=== PATIENT | male | born 1990 | race African-American/Black ===

== ENCOUNTER 2016-07-20 23:09 | Emergency (ER) | payer SELFPAY | END 2016-07-20 23:30 | disposition left against medical advice (07) | LOC: ER 23:09 | DX: Z53.9 Procedure and treatment not carried out, unspecified reason (principal); R21 Rash and other nonspecific skin eruption ==

== ENCOUNTER 2016-07-25 05:21 | Emergency (ER) | payer SELFPAY ==
[2016-07-25 05:43] VITALS: BP 139/76
--- NOTE | 2016-07-25 06:35 | ER Document Report ---
ED General - General Chief Complaint: Itching Stated Complaint: POSSIBLE SCABIES Time Seen by Provider: 07/25/16 06:05 Mode of Arrival: Ambulatory Information source: Patient Notes: 25-year-old male presents with multiple complaints. Initial complaint is for itchiness of his upper back, patient is noted to have been around the patient who had scabies, patient has not actually had any actual physical contact with the patient. Patient also notes that he has bumps around his inner thighs but this has been chronic, patient also notes that he has dental pain which has been ongoing for at least 3 weeks TRAVEL OUTSIDE OF THE [place] IN LAST 30 DAYS: No - HPI Onset: Other Onset/Duration: Persistent Quality of pain: Achy Severity: Mild Pain Level: 1 Associated symptoms: Other Exacerbated by: Denies Relieved by: Denies Similar symptoms previously: No Recently seen / treated by doctor: No - Related Data Allergies/Adverse Reactions: No Known Allergies Allergy (Verified 06/01/14 20:22) Past Medical History - Social History Smoking Status: Never Smoker Cigarette use (# per day): No Chew tobacco use (# tins/day): No Smoking Education Provided: No Family History: Hypertension Neurological Medical History: Reports: Hx Migraine Renal/ Medical History: Denies: Hx Peritoneal Dialysis Psychiatric Medical History: Reports: Hx Bipolar Disorder, Hx Depression, Hx Schizophrenia Past Surgical History: Reports: Hx Oral Surgery - Immunizations Immunizations up to date: Yes Hx Diphtheria, Pertussis, Tetanus Vaccination: Yes Review of Systems - Review of Systems Notes: PHYSICAL EXAMINATION: GENERAL: Well-appearing, well-nourished and in no acute distress. HEAD: Atraumatic, normocephalic. EYES: Pupils equal round and reactive to light, extraocular movements intact, sclera anicteric, conjunctiva are normal. ENT: Very poor dentition particularly in tooth #12 decayed NECK: Normal range of motion, supple without lymphadenopathy LUNGS: Breath sounds clear to auscultation bilaterally and equal. No wheezes rales or rhonchi. HEART: Regular rate and rhythm without murmurs ABDOMEN: Soft, nontender, nondistended abdomen. No guarding, no rebound. No masses appreciated. Musculoskeletal: Normal range of motion, no pitting or edema. No cyanosis. NEUROLOGICAL: Cranial nerves grossly intact. Normal speech, normal gait. Normal sensory, motor exams PSYCH: Normal mood, normal affect. SKIN: Scarring noted of the bilateral inner thighs probably secondary to infected hair follicles, no abscess noted no signs of scabies no burrows Physical Exam - Vital signs Vitals: Temp Pulse Resp BP Pulse Ox 98.2 F 86 16 139/76 H 100 07/25/16 05:39 07/25/16 05:39 07/25/16 05:39 07/25/16 05:39 07/25/16 05:39 Course - Re-evaluation Re-evalutation: 07/25/16 08:33 Patient will be started on antibiotics for dental pain, I do not see any signs of scabies or any other skin infectious process. Patient denies a history of MRSA. I will discharge home with follow-up with primary care physician and dentistry After performing a Medical Screening Examination, I estimate there is LOW risk for any life threatening rash. At this time the patient looks extremely well and there are no signs of systemic infection, however this may change at any time and the rash may change. I have reevaluated this patient multiple times and no significant life threatening changes are noted. The patient and I have discussed the diagnosis and risks, and we agree with discharging home with close follow-up with the understanding that symptoms and presentations can change. We also discussed returning to the Emergency Department immediately if new or worsening symptoms occur. We have discussed the symptoms which are most concerning (e.g., changing or worsening pain, fever, numbness, weakness, cool or painful digits) that necessitate immediate return. - Vital Signs Vital signs: Temp Pulse Resp BP Pulse Ox 98.2 F 86 21 H 139/76 H 100 07/25/16 05:39 07/25/16 05:39 07/25/16 05:40 07/25/16 05:39 07/25/16 05:39 Discharge - Discharge Clinical Impression: Pain, dental, Itching Condition: Stable Disposition: HOME, SELF-CARE Instructions: Toothache ([facility]) Additional Instructions: Follow up with your physician tomorrow for further care or return to the ED IMMEDIATELY if symptoms worsen or new concerns occur. If you cannot afford to follow up with your primary care physician a list of low cost clinics have been provided at the end of your discharge papers as well. Prescriptions: Penicillin V Potassium [Penicillin Vk 500 mg Tablet] 500 mg PO Q6 #40 tablet Forms: Return to Work
== END 2016-07-25 06:40 | disposition home or self-care (01) ==
LOC: ER 05:21
DX: K08.89 Other specified disorders of teeth and supporting structures (principal); L29.9 Pruritus, unspecified
CPT/HCPCS: 99282

== ENCOUNTER 2016-08-15 23:56 | Emergency (ER) | payer SELFPAY ==
[2016-08-16 00:02] VITALS: BP 155/79
[2016-08-16] MEDS ORDERED: CEFTRIAXONE INJ 250 MG VIAL IM ONE (01:30)
[2016-08-16] MEDS ORDERED: AZITHROMYCIN 250 MG TABLET PO ONE (01:30)
[2016-08-16] MEDS ORDERED: LIDOCAINE 1% INJ-PF (10 MG/ML) 30 ML SDV INJ ONE (01:30)
--- NOTE | 2016-08-16 01:32 | ER Document Report ---
ED GI/ - General Chief Complaint: STD Exposure Stated Complaint: POSSIBLE STD EXPOSURE Time Seen by Provider: 08/16/16 01:20 Notes: Patient is a 25-year-old male that comes emergency department for chief complaint of STD exposure. He states that his was evaluated earlier today and diagnosed with both gonorrhea and chlamydia. Patient denies any symptoms including rash, abdominal pain, dysuria, penile discharge, or any other symptoms. Patient states he is simply here because of the exposure information. He denies any daily medications. He denies homicidal ideations. TRAVEL OUTSIDE OF THE [place] IN LAST 30 DAYS: No - Related Data Allergies/Adverse Reactions: No Known Allergies Allergy (Verified 06/01/14 20:22) Past Medical History - General Information source: Patient - Social History Smoking Status: Current Every Day Smoker Chew tobacco use (# tins/day): No Frequency of alcohol use: Social Drug Abuse: None Lives with: Family Family History: Hypertension Patient has suicidal ideation: No Patient has homicidal ideation: No Neurological Medical History: Reports: Hx Migraine Renal/ Medical History: Denies: Hx Peritoneal Dialysis Psychiatric Medical History: Reports: Hx Bipolar Disorder, Hx Depression Past Surgical History: Reports: Hx Oral Surgery - Immunizations Immunizations up to date: Yes Hx Diphtheria, Pertussis, Tetanus Vaccination: Yes Review of Systems - Review of Systems Constitutional: No symptoms reported EENT: No symptoms reported Cardiovascular: No symptoms reported Respiratory: No symptoms reported Gastrointestinal: No symptoms reported Genitourinary: No symptoms reported Male Genitourinary: No symptoms reported Musculoskeletal: No symptoms reported Skin: No symptoms reported Hematologic/Lymphatic: No symptoms reported Neurological/Psychological: No symptoms reported Physical Exam - Vital signs Vitals: Temp Pulse Resp BP Pulse Ox 98.5 F 73 16 155/79 H 100 08/16/16 00:01 08/16/16 00:01 08/16/16 00:01 08/16/16 00:01 08/16/16 00:01 Interpretation: Normal - General General appearance: Appears well, Alert In distress: None - HEENT Head: Normocephalic, Atraumatic Eyes: Normal Pupils: PERRL - Respiratory Respiratory status: No respiratory distress Chest status: Nontender Breath sounds: Normal Chest palpation: Normal - Cardiovascular Rhythm: Regular Heart sounds: Normal auscultation Murmur: No - Abdominal Inspection: Normal Distension: No distension Bowel sounds: Normal Tenderness: Nontender. No: Tender, Guarding Organomegaly: No organomegaly - Back Back: Normal, Nontender - Extremities General upper extremity: Normal inspection, Nontender, Normal color, Normal ROM , Normal temperature General lower extremity: Normal inspection, Nontender, Normal color, Normal ROM , Normal temperature, Normal weight bearing. No: Julia's sign - Neurological Neuro grossly intact: Yes Cognition: Normal Orientation: AAOx4 Ema Coma Scale Eye Opening: Spontaneous Ema Coma Scale Verbal: Oriented [place] Coma Scale Motor: Obeys Commands [place] Coma Scale Total: 15 Speech: Normal Motor strength normal: LUE, RUE, LLE, RLE Sensory: Normal - Psychological Associated symptoms: Normal affect, Normal mood. No: Aggressive, Agitated, Angry, Anxious - Skin Skin Temperature: Warm Skin Moisture: Dry Skin Color: Normal Course - Re-evaluation Re-evalutation: Nurse informed me that patient complaining of a mild headache after antibiotics. Requests medication for this, still says he is ready to leave. - Vital Signs Vital signs: Temp Pulse Resp BP Pulse Ox 98.5 F 73 16 155/79 H 100 08/16/16 00:01 08/16/16 00:01 08/16/16 00:01 08/16/16 00:01 08/16/16 00:01 Discharge - Discharge Clinical Impression: STD exposure Condition: Stable Disposition: HOME, SELF-CARE Additional Instructions: You have been treated for the exposure. Avoid sexual activity for a week. Follow up with Primary Care. Return to the ED for any concerning symptoms. Forms: Return to Work, Elevated Blood Pressure
[2016-08-16] MEDS ORDERED: IBUPROFEN 600 MG TABLET PO ONE (02:11)
== END 2016-08-16 02:25 | disposition home or self-care (01) ==
LOC: ER 23:56
DX: Z20.2 Contact with and (suspected) exposure to infections with a predominantly sexual mode of transmission (principal); F17.200 Nicotine dependence, unspecified, uncomplicated
CPT/HCPCS: 99283; 96372; J3490; J0696

== ENCOUNTER 2017-04-27 20:56 | Emergency (ER) | payer SELFPAY ==
[2017-04-28] MEDS ORDERED: VANCOMYCIN HCL INJ 1000 MG VIAL IV ONE (00:16)
[2017-04-28] MEDS ORDERED: CEFTRIAXONE INJ 1000 MG VIAL IV ONE (00:16)
[2017-04-28] MEDS ORDERED: HYDROMORPHONE HCL INJ/PF 2 MG/ML AMPULE IV ONE (00:18)
--- NOTE | 2017-04-28 00:52 | ER Document Report ---
ED General - General Chief Complaint: Insect Bite Stated Complaint: INSECT BITE Time Seen by Provider: 04/27/17 23:49 Notes: Patient is a 26-year-old male who presents with complaint of swelling to the right elbow. He says it has been there for over 3 days. He suspected it may be a spider bite. He did not actually see an insect or bite there. He says he saw lump there and says he buys all 2 small holes. He denies any vomiting. No diarrhea. He says he did start having fevers tonight and the swelling has increased and therefore is come to the ER. Denies any history of surgeries on elbow. No other complaints at this time. TRAVEL OUTSIDE OF THE [place] IN LAST 30 DAYS: No - Related Data Allergies/Adverse Reactions: No Known Allergies Allergy (Verified 06/01/14 20:22) Past Medical History - Social History Smoking Status: Never Smoker Frequency of alcohol use: None Drug Abuse: None Family History: Hypertension Neurological Medical History: Reports: Hx Migraine Renal/ Medical History: Denies: Hx Peritoneal Dialysis Psychiatric Medical History: Reports: Hx Bipolar Disorder, Hx Depression, Hx Schizophrenia Past Surgical History: Reports: Hx Oral Surgery - Immunizations Immunizations up to date: Yes Hx Diphtheria, Pertussis, Tetanus Vaccination: Yes Review of Systems - Review of Systems Notes: My Normal Review Basic REVIEW OF SYSTEMS: CONSTITUTIONAL : fever RESPIRATORY: Denies cough, cold, or chest congestion. Denies shortness of breath, difficulty breathing, or wheezing. GASTROINTESTINAL: Denies abdominal pain. Denies nausea, vomiting, or diarrhea. MUSCULOSKELETAL: Right elbow pain and swelling. SKIN: Denies rash or skin lesions. NEUROLOGICAL: Denies altered mental status or loss of consciousness. Denies headache. Denies weakness or paralysis or loss of use of either side. Denies problems with gait or speech. Denies sensory or motor loss. ALL OTHER SYSTEMS REVIEWED AND NEGATIVE. Physical Exam - Vital signs Vitals: Temp Pulse BP Pulse Ox 100.1 F 92 138/84 H 99 04/27/17 21:11 04/27/17 21:11 04/27/17 21:11 04/27/17 21:11 - Notes Notes: General Appearance: Well nourished, alert, cooperative, no acute distress, mild to moderate obvious discomfort. Vitals: reviewed, See vital signs table. Eyes: PERRL, EOMI, Conjuctiva clear Mouth: No decreasd moisture Lungs: No wheezing, No rales, No rhonci, No accessory muscle use, good air exchange bilaterally. Heart: Normal rate, Regular rythm, No murmur, no rub Abdomen: Normal BS, soft, No rigidity, No abdominal tenderness, No guarding, no rebound, no abdominal masses, no organomegaly Extremities: strength 5/5 in all extremities, good pulses in all extremities, large amount of swelling over the posterior aspect of the elbow. Patient is able to fully flex the elbow. He is able to almost completely extend the elbow. There is warmth and redness to the posterior aspect of the elbow. Skin: warm, dry, appropriate color, no rash Neuro: speech clear, oriented x 3, normal affect, responds appropriately to questions. Course - Re-evaluation Re-evalutation: 04/28/17 05:13 Due to the extension of cellulitis in the location of swelling over the elbow itself I did speak with Dr. Phan who agreed to admit the patient for IV antibiotics and continued management. Patient now says he does not want to stay. Patient says that his Family in town and just would rather go home. I talked at length with the patient. He continued to call family and go back and forth as to whether he would stay or not stay. Eventually patient refused to stay. I informed him that he should really stay as the swelling may continue to worsen and his infection may spread and this could cause him to get infection into his joint which could lead to surgery and ultimately could lead to loss of limb. Patient shows understanding of this but still refuses to stay. Also remarked the area of swelling and showed him that is actually increased since he has been here in the ER. Patient again will not stay. Patient says he will come back for second morning for reevaluation. He says he cannot stay as he has things to take care of him at home and his family in town. Patient is awake alert and oriented. He is not currently septic. He is not altered in any way. He has the capability of make his own decisions. He is understanding of the warnings have given him and has decided to sign out AGAINST MEDICAL ADVICE. Informed him that despite him sign AGAINST MEDICAL ADVICE is still want what is best form and I strongly encourage him to return to ER at his earliest can convenience so that we can reevaluate him and take care of him and make sure that his infection improves and does not progress. Patient agrees with this and he will be discharged as he requests. Dictation of this chart was performed using voice recognition software; therefore, there may be some unintended grammatical errors. 04/28/17 05:15 - Vital Signs Vital signs: Temp Pulse Resp BP Pulse Ox 99.5 F 81 18 130/75 H 98 04/28/17 04:12 04/28/17 04:12 04/28/17 04:12 04/28/17 04:12 04/28/17 04:12 - Laboratory Result Diagrams: 04/28/17 01:00 04/28/17 01:00 Laboratory results interpreted by me: 04/28/17 01:00 WBC 15.8 H Absolute Neutrophils 10.3 H Absolute Monocytes 1.5 H Discharge - Discharge Clinical Impression: Cellulitis Qualifiers: Site of cellulitis: extremity Site of cellulitis of extremity: upper extremity Laterality: right Qualified Code(s): L03.113 - Cellulitis of right upper limb Condition: Stable Disposition: AGAINST MEDICAL ADVICE Instructions: Oral Narcotic Medication ([facility]) Additional Instructions: Please return to the ER as soon as possible for reevaluation. please follow up with Dr. Phan on Saturday for reevaluation as well. As discussed with you we want you to stay in the hospital because my concern is that your infection could get worse and lead to spreading infection to the elbow joint itself which leads to surgery and potentially loss of arm and life. We respect your right to choose to leave, but we want what is best for you and therefore welcome you to return to the ER at your earliest ability for reevaluation and further treatment. Prescriptions: Cephalexin Monohydrate [Keflex 500 mg Capsule] 500 mg PO Q6H #28 capsule Sulfamethoxazole/Trimethoprim [Bactrim Ds Tablet] 1 each PO BID #14 tablet Referrals: KARY ABEL MD [ACTIVE STAFF] - 04/29/17
[2017-04-28 01:14] LABS: ABSOLUTE BASOPHILS # (AUTO) 0.1 10^3/uL (0.0-0.2); ABSOLUTE EOSINOPHILS # (AUTO) 0.3 10^3/uL (0.0-0.6); ABSOLUTE LYMPHOCYTES (AUTO) 3.5 10^3/uL (0.5-4.7); ABSOLUTE MONOCYTES (AUTO) 1.5 10^3/uL (0.1-1.4); ABSOLUTE NEUT (AUTO) 10.3 10^3/uL (1.7-8.2); BASOPHILS % (AUTO) 0.5 % (0-2); EOSINOPHILS % (AUTO) 2.1 % (0-6); HEMATOCRIT 47.6 % (37.9-51.0); HEMOGLOBIN 16.4 g/dL (13.5-17.0); LYMPHOCYTES % (AUTO) 22.2 % (13-45); MEAN CORPUSCULAR HEMOGLOBIN 32.4 pg (27.0-33.4); MEAN CORPUSCULAR HGB CONC 34.5 g/dL (32.0-36.0); MEAN CORPUSCULAR VOLUME 94 fl (80-97); MONOCYTES % (AUTO) 9.6 % (3-13); PLATELET COUNT 378 10^3/uL (150-450); RED BLOOD COUNT 5.07 10^6/uL (4.35-5.55); RED CELL DISTRIBUTION WIDTH 13.8 % (11.5-14.0); SEGMENTED NEUTROPHILS % (AUTO) 65.6 % (42-78); TOTAL CELLS COUNTED % (AUTO) 100 %; WHITE BLOOD COUNT 15.8 10^3/uL (4.0-10.5)
[2017-04-28 01:36] LABS: ANION GAP 17 (5-19); BLOOD UREA NITROGEN 9 mg/dL (7-20); CALCIUM 9.7 mg/dL (8.4-10.2); CARBON DIOXIDE 22 mmol/L (22-30); CHLORIDE 103 mmol/L (98-107); GLUCOSE 83 mg/dL (75-110); POTASSIUM 4.3 mmol/L (3.6-5.0); SODIUM 142.4 mmol/L (137-145)
--- NOTE | 2017-04-28 02:04 | RADIOLOGY REPORT (SQ) ---
EXAM DESCRIPTION: 1. CT of the right elbow with contrast. CLINICAL HISTORY: right elbow swelling, bursitis vs. abscess COMPARISON: None Available. TECHNIQUE: Axial CT images of the right elbow obtained following the uncomplicated intravenous administration of 50 mL [id number]. FINDINGS: Elbow: No acute fracture identified. In the dorsal soft tissues of the elbow there is diffuse subcutaneous edema without well-circumscribed circumscribed rim-enhancing fluid collection. Given extension into the subcutaneous soft tissues of the proximal forearm bursitis is considered less likely. No destructive osseous lesions. No abnormalities of the visualized vascular structures. No vascular abnormalities identified. DLP: 70 mGy-cm IMPRESSION: 1. Findings most suggestive of cellulitis involving the dorsal soft tissues of the elbow. No well-circumscribed fluid collection to suggest abscess formation. 2. Diffuse nature of inflammatory change extends beyond the expected location of the olecranon bursa. This exam was performed according to our departmental dose-optimization program, which includes automated exposure control, adjustment of the mA and/or kV according to patient size and/or use of iterative reconstruction technique.
[2017-04-28] MEDS ORDERED: RINGERS SOLUTION,LACTATED 1,000 ML IV PRN (02:30)
[2017-04-28] MEDS ORDERED: OXYCODONE-ACETAMINOPHEN 5-325 MG TABLET PO PRN (02:30)
[2017-04-28] MEDS ORDERED: ONDANSETRON HCL INJ/PF 4 MG/2 ML SDV IV PRN (02:30)
[2017-04-28] MEDS ORDERED: PHARMACY COMMUNICATION ORDER MC PRN (02:35)
[2017-04-28] MEDS ORDERED: HYDROCODONE/ACETAMINOPHEN 5-325 MG (6 TAB/ER DISP) PO PRN (03:18)
[2017-04-28 04:13] VITALS: BP 130/75
[2017-04-28] MEDS ORDERED: VANCOMYCIN HCL 1,500 MG in DEXTROSE 5%-WATER 250 ML IV SCH (14:00)
== END 2017-04-28 04:13 | disposition left against medical advice (07) ==
LOC: ER 20:56
DX: L03.113 Cellulitis of right upper limb (principal); R50.9 Fever, unspecified; M25.521 Pain in right elbow; Z53.29 Procedure and treatment not carried out because of patient's decision for other reasons
CPT/HCPCS: 99284; 96375; 96365; 96366; 96367; 36415; 87040; 85025; 80048; 73201; J1170; J0696; J3370

== ENCOUNTER 2018-05-02 09:49 | Emergency (ER) | payer SELFPAY ==
--- NOTE | 2018-05-02 10:05 | ER Document Report ---
ED Medical Screen (RME) - General Chief Complaint: Abdominal Pain Stated Complaint: ABDOMINAL PAIN Time Seen by Provider: 05/02/18 09:58 Notes: Patient says that he has had diarrhea almost constantly since Saturday night. Says he is going to the bathroom about every 15-30 minutes. There was some blood in the diarrhea at first, but not lately. Has generalized, all over, abdominal pain. Nauseated but not vomiting. No fevers. No history of any gastrointestinal diseases. No surgeries. On no regular prescription medications for any medical condition. Abdomen is soft throughout. No guarding. TRAVEL OUTSIDE OF THE [place] IN LAST 30 DAYS: No - Related Data Allergies/Adverse Reactions: No Known Allergies Allergy (Verified 05/02/18 09:50) Past Medical History - Social History Chew tobacco use (# tins/day): No Frequency of alcohol use: Occasional Drug Abuse: None Neurological Medical History: Reports: Hx Migraine Renal/ Medical History: Denies: Hx Peritoneal Dialysis Psychiatric Medical History: Reports: Hx Bipolar Disorder, Hx Depression, Hx Schizophrenia Past Surgical History: Reports: Hx Oral Surgery - Immunizations Immunizations up to date: Yes Hx Diphtheria, Pertussis, Tetanus Vaccination: Yes Physical Exam - Vital signs Vitals: Temp Pulse Resp BP Pulse Ox 98.3 F 88 18 146/74 H 99 05/02/18 09:52 05/02/18 09:52 05/02/18 09:52 05/02/18 09:52 05/02/18 09:52 Course - Vital Signs Vital signs: Temp Pulse Resp BP Pulse Ox 98.3 F 88 18 146/74 H 99 05/02/18 09:52 05/02/18 09:52 05/02/18 09:52 05/02/18 09:52 05/02/18 09:52
[2018-05-02 10:46] LABS: APPEARANCE,URINE SLIGHTLY-CLOUDY; BILIRUBIN,URINE NEGATIVE (NEGATIVE); COLOR,URINE YELLOW; GLUCOSE, URINE NEGATIVE (NEGATIVE); KETONES,URINE NEGATIVE (NEGATIVE); LEUKOCYTE ESTERASE,URINE NEGATIVE (NEGATIVE); NITRITE,URINE NEGATIVE (NEGATIVE); PROTEIN,URINE NEGATIVE (NEGATIVE); URINE SPECIFIC GRAVITY 1.025; UROBILINOGEN,URINE NEGATIVE mg/dL (<2.0)
[2018-05-02 11:09] LABS: ABSOLUTE BASOPHILS # (AUTO) 0.1 10^3/uL (0.0-0.2); ABSOLUTE EOSINOPHILS # (AUTO) 0.2 10^3/uL (0.0-0.6); ABSOLUTE LYMPHOCYTES (AUTO) 2.5 10^3/uL (0.5-4.7); ABSOLUTE MONOCYTES (AUTO) 0.9 10^3/uL (0.1-1.4); ABSOLUTE NEUT (AUTO) 6.7 10^3/uL (1.7-8.2); BASOPHILS % (AUTO) 0.6 % (0-2); EOSINOPHILS % (AUTO) 1.7 % (0-6); HEMATOCRIT 47.5 % (37.9-51.0); HEMOGLOBIN 16.7 g/dL (13.5-17.0); LYMPHOCYTES % (AUTO) 24.4 % (13-45); MEAN CORPUSCULAR HEMOGLOBIN 33.4 pg (27.0-33.4); MEAN CORPUSCULAR HGB CONC 35.2 g/dL (32.0-36.0); MEAN CORPUSCULAR VOLUME 95 fl (80-97); MONOCYTES % (AUTO) 8.4 % (3-13); PLATELET COUNT 327 10^3/uL (150-450); RED CELL DISTRIBUTION WIDTH 13.7 % (11.5-14.0); SEGMENTED NEUTROPHILS % (AUTO) 64.9 % (42-78); TOTAL CELLS COUNTED % (AUTO) 100 %; WHITE BLOOD COUNT 10.3 10^3/uL (4.0-10.5)
[2018-05-02 11:32] LABS: ALANINE AMINOTRANSFERASE 19 U/L (21-72); ALBUMIN 4.6 g/dL (3.5-5.0); ALKALINE PHOSPHATASE 80 U/L (38-126); ANION GAP 14 (5-19); ASPARTATE AMINO TRANSFERASE 27 U/L (17-59); BILIRUBIN,DIRECT 0.3 mg/dL (0.0-0.4); BILIRUBIN,TOTAL 0.7 mg/dL (0.2-1.3); BLOOD UREA NITROGEN 10 mg/dL (7-20); CALCIUM 10.1 mg/dL (8.4-10.2); CARBON DIOXIDE 22 mmol/L (22-30); CHLORIDE 107 mmol/L (98-107); GLUCOSE 145 mg/dL (75-110); LIPASE 94.7 U/L (23-300); POTASSIUM 4.1 mmol/L (3.6-5.0); TOTAL PROTEIN 7.7 g/dL (6.3-8.2)
[2018-05-02] MEDS ORDERED: AZITHROMYCIN 250 MG TABLET PO ONE (11:58)
[2018-05-02] MEDS ORDERED: LIDOCAINE 1% INJ-PF (10 MG/ML) 30 ML SDV INFIL ONE (11:58)
[2018-05-02] MEDS ORDERED: CEFTRIAXONE INJ 250 MG VIAL IM ONE (11:58)
[2018-05-02] MEDS ORDERED: KETOROLAC TROMETHAMINE INJ/PF 30 MG/1 ML SDV IV ONE (11:59)
[2018-05-02] MEDS ORDERED: NORMAL SALINE 1000 ML 1,000 ML IV ONE (11:59)
[2018-05-02] MEDS ORDERED: DICYCLOMINE HCL 20 MG TABLET PO ONE (12:49)
--- NOTE | 2018-05-02 12:54 | ER Document Report ---
ED General - General Chief Complaint: Abdominal Pain Stated Complaint: ABDOMINAL PAIN Time Seen by Provider: 05/02/18 09:58 Notes: Patient is a 27-year-old male previously healthy that presents to the emergency department for chief complaint of abdominal pain and diarrhea. Patient states the pain started 3 days ago, and has been persistent and seemingly worsening over time. The pain is located left lower quadrant, and they currently rate the pain as a 5 out of 10, and described as aching, and constant. They have had associated nausea, but no vomiting, denies fevers, chills, night sweats, chest pain, shortness of breath or difficulty breathing. He states he recently visited someone in the hospital, and was concerned about that he might have contracted something from the hospital as well. Past Medical History: Denies chronic medical conditions Past Surgical History: Denies surgical history Social History: Mid to rare alcohol use, denies tobacco or drug use. Family History: Reviewed and noncontributory for presenting illness Allergies: Reviewed, see documented allergy list. REVIEW OF SYSTEMS: Other than noted above, the 12 point review of systems was reviewed with the patient and were negative, all pertinent findings are included in the HPI. PHYSICAL EXAMINATION: Vital signs reviewed, nursing noted reviewed. GENERAL: Well-appearing, well-nourished and appears uncomfortable HEAD: Atraumatic, normocephalic. EYES: Eyes appear normal, extraocular movements intact, sclera anicteric, conjunctiva are normal. ENT: nares patent, oropharynx clear without exudates. Moist mucous membranes. NECK: Normal range of motion, supple without lymphadenopathy LUNGS: Breath sounds clear to auscultation bilaterally and equal. No wheezes rales or rhonchi. HEART: Regular rate and rhythm without murmurs ABDOMEN: Soft, normal bowel sounds, tenderness with palpation mainly in the left lower quadrant, No rebound, guarding, or rigidity. No masses appreciated. EXTREMITIES: Nontender, good range of motion, no pitting or edema. NEUROLOGICAL: No focal neurological deficits. Moves all extremities spontaneously Motor and sensory grossly intact on exam. PSYCH: Normal mood, normal affect. SKIN: Warm, Dry, normal turgor, no rashes or lesions noted on exposed skin TRAVEL OUTSIDE OF THE [place] IN LAST 30 DAYS: No - Related Data Allergies/Adverse Reactions: No Known Allergies Allergy (Verified 05/02/18 09:50) Past Medical History - Social History Smoking Status: Current Every Day Smoker Chew tobacco use (# tins/day): No Frequency of alcohol use: Occasional Drug Abuse: None Family History: Hypertension Patient has suicidal ideation: No Patient has homicidal ideation: No Neurological Medical History: Reports: Hx Migraine Renal/ Medical History: Denies: Hx Peritoneal Dialysis Psychiatric Medical History: Reports: Hx Bipolar Disorder, Hx Depression, Hx Schizophrenia Past Surgical History: Reports: Hx Oral Surgery - Immunizations Immunizations up to date: Yes Hx Diphtheria, Pertussis, Tetanus Vaccination: Yes Physical Exam - Vital signs Vitals: Temp Pulse Resp BP Pulse Ox 98.3 F 88 18 146/74 H 99 05/02/18 09:52 05/02/18 09:52 05/02/18 09:52 05/02/18 09:52 05/02/18 09:52 Course - Re-evaluation Re-evalutation: Patient seen and examined vital signs reviewed. Laboratory data and imaging were ordered as appropriate for the patient's presenting symptoms and complaint, with consideration of any critical or life threatening conditions that may be associated with their obtained history and exam as noted above. Patient was treated with IV fluids, Zofran and Toradol. He was also given a dose of p.o. Bentyl 20 mg. Results were reviewed when available and demonstrated unremarkable blood work, and negative CT imaging of the abdomen and pelvis, his urinalysis was positive for hematuria, patient made aware of this and advised he needs to follow-up on this, he was also treated for STI's with Rocephin and azithromycin as he had a concern about this as well. C. difficile was ordered and was negative. The patient was re-evaluated and was stable and improved Evaluation was most consistent with abdominal pain, diarrhea, hematuria. Results were discussed with the patient at this point, after careful consideration I feel that that patient can be discharged from the emergency department, the patient was educated treatments and reasons to return to the emergency department based on their presumed diagnosis as noted above, they were advised to followup with a primary care physician in 2-3 days. Patient was agreeable to plan of care. *Note is created using voice recognition software and may contain spelling, syntax or grammatical errors. Laboratory 05/02/18 05/02/18 05/02/18 10:16 10:16 10:16 WBC 10.3 RBC 5.00 Hgb 16.7 Hct 47.5 MCV 95 MCH 33.4 MCHC 35.2 RDW 13.7 Plt Count 327 Seg Neutrophils % 64.9 Lymphocytes % 24.4 Monocytes % 8.4 Eosinophils % 1.7 Basophils % 0.6 Absolute Neutrophils 6.7 Absolute Lymphocytes 2.5 Absolute Monocytes 0.9 Absolute Eosinophils 0.2 Absolute Basophils 0.1 Sodium 143.0 Potassium 4.1 Chloride 107 Carbon Dioxide 22 Anion Gap 14 BUN 10 Creatinine 0.81 Est GFR ( Amer) > 60 Est GFR (Non-Af Amer) > 60 Glucose 145 H Calcium 10.1 Total Bilirubin 0.7 Direct Bilirubin 0.3 Neonat Total Bilirubin Not Reportable Neonat Direct Bilirubin Not Reportable Neonat Indirect Bili Not Reportable AST 27 ALT 19 L Alkaline Phosphatase 80 Total Protein 7.7 Albumin 4.6 Lipase 94.7 Urine Color Urine Appearance Urine pH Ur Specific Blount Urine Protein Urine Glucose (UA) Urine Ketones Urine Blood Urine Nitrite Urine Bilirubin Urine Urobilinogen Ur Leukocyte Esterase Urine WBC (Auto) Urine RBC (Auto) Squamous Epi Cells Auto Urine Mucus (Auto) Urine Ascorbic Acid C. difficile Tox (PCR) NEGATIVE 05/02/18 10:16 WBC RBC Hgb Hct MCV MCH MCHC RDW Plt Count Seg Neutrophils % Lymphocytes % Monocytes % Eosinophils % Basophils % Absolute Neutrophils Absolute Lymphocytes Absolute Monocytes Absolute Eosinophils Absolute Basophils Sodium Potassium Chloride Carbon Dioxide Anion Gap BUN Creatinine Est GFR ( Amer) Est GFR (Non-Af Amer) Glucose Calcium Total Bilirubin Direct Bilirubin Neonat Total Bilirubin Neonat Direct Bilirubin Neonat Indirect Bili AST ALT Alkaline Phosphatase Total Protein Albumin Lipase Urine Color YELLOW Urine Appearance SLIGHTLY-CLOUDY Urine pH 5.0 Ur Specific Blount 1.025 Urine Protein NEGATIVE Urine Glucose (UA) NEGATIVE Urine Ketones NEGATIVE Urine Blood MODERATE H Urine Nitrite NEGATIVE Urine Bilirubin NEGATIVE Urine Urobilinogen NEGATIVE Ur Leukocyte Esterase NEGATIVE Urine WBC (Auto) 2 Urine RBC (Auto) 1 Squamous Epi Cells Auto <1 Urine Mucus (Auto) RARE Urine Ascorbic Acid NEGATIVE C. difficile Tox (PCR) Abdomen/Pelvis CT 05/02/18 11:59 IMPRESSION: NO ACUTE FINDINGS IN THE ABDOMEN OR PELVIS ON CT SCAN WITH IV CONTRAST. - Vital Signs Vital signs: Temp Pulse Resp BP Pulse Ox 98.3 F 88 18 146/74 H 99 05/02/18 09:52 05/02/18 09:52 05/02/18 09:52 05/02/18 09:52 05/02/18 09:52 - Laboratory Result Diagrams: 05/02/18 10:16 05/02/18 10:16 Laboratory results interpreted by me: 05/02/18 05/02/18 10:16 10:16 Glucose 145 H ALT 19 L Urine Blood MODERATE H Discharge - Discharge Clinical Impression: Abdominal pain Qualifiers: Abdominal location: unspecified location Qualified Code(s): R10.9 - Unspecified abdominal pain Diarrhea Qualifiers: Diarrhea type: unspecified type Qualified Code(s): R19.7 - Diarrhea, unspecified Condition: Stable Disposition: HOME, SELF-CARE Instructions: Abdominal Pain ([facility]), Diarrhea, Nonspecific ([facility]) Additional Instructions: Your urine testing today did demonstrate some blood in the urine, this is something that needs to be followed up on, it usually is not an issue at all, but you should have repeat urine testing in 2 weeks, this can be done in the emergency department, but preferably done in the outpatient setting with a primary care physician, to primary care physicians have been listed with your paperwork if you do not have one. Prescriptions: Dicyclomine HCl [Bentyl 20 mg Tablet] 20 mg PO QID PRN #30 tablet PRN Reason: Abdominal Cramping Referrals: [facility] [Provider Group] - Follow up in 3-5 days SIMON CANDELARIO MD [COMMUNITY BASED STAFF] - Follow up in 3-5 days
--- NOTE | 2018-05-02 12:56 | RADIOLOGY REPORT (SQ) ---
EXAM DESCRIPTION: CT ABD/PELVIS WITH IV ONLY COMPLETED DATE/TIME: 05/02/2018 12:44 pm REASON FOR STUDY: llq abdominal pain, diarrhea COMPARISON: None. TECHNIQUE: CT scan of the abdomen and pelvis performed using helical scanning technique with dynamic intravenous contrast injection. No oral contrast. Images reviewed with lung, soft tissue, and bone w indows. Reconstructed coronal and sagittal MPR images reviewed. Delayed images for evaluation of the urinary system also acquired. All images stored on PACS. All CT scanners at this facility use dose modulation, iterative reconstruction, and/or weight based d osing when appropriate to reduce radiation dose to as low as reasonably achievable (ALARA). [facility]: Dose Right [facility]: CareDose [facility]: Dose Right [facility]: Teradose 4D [facility]: Travel Appeal CONTRAST TYPE AND DOSE: contrast/concentration: Isovue 350.00 mg/ml; Total Contrast Delivered: 100.0 ml; Total Saline Delivered: 72.0 ml RENAL FUNCTION: None required. The patient is less than 50 years old. RADIATION DOSE: CT Rad equipment meets quality standard of care and radiation dose reduction techniq ues were employed. CTDIvol: 17.7 - 21.1 mGy. DLP: 2276 mGy-cm.. LIMITATIONS: None. FINDINGS: LOWER CHEST: No significant findings. LIVER: Normal size. No enhancing masses. No dilated ducts. SPLEEN: Normal size. No focal lesions. PANCREAS: No masses identified. No significant calcifications. No adjacent inflammation or peripancre atic fluid collections. Pancreatic duct not dilated. GALLBLADDER: No calcified stones. No inflammatory changes to suggest cholecystitis. ADRENAL GLANDS: No significant masses. RIGHT KIDNEY AND URETER: No cysts identified. No solid masses identified. No calcified stones. No hyd ronephrosis or hydroureter. LEFT KIDNEY AND URETER: No cysts identified. No solid masses identified. No calcified stones. No hydr onephrosis or hydroureter. AORTA AND VESSELS: No aneurysm. No dissection. Renal arteries, SMA, celiac without significant stenos is. RETROPERITONEUM: No bulky retroperitoneal adenopathy. BOWEL AND PERITONEAL CAVITY: No obstruction or inflammatory changes. No free fluid. APPENDIX: Normal. PELVIS: No mass. No free fluid. Unremarkable bladder. ABDOMINAL WALL: No masses. No hernias. BONES: No acute findings. Right unilateral L5 pars interarticularis defect. OTHER: No other significant finding. IMPRESSION: NO ACUTE FINDINGS IN THE ABDOMEN OR PELVIS ON CT SCAN WITH IV CONTRAST. TECHNICAL DOCUMENTATION: JOB ID: [id number] Quality ID # [id number]: Final reports with documentation of one or more dose reduction techniques (e.g., Au tomated exposure control, adjustment of the mA and/or kV according to patient size, use of iterative reconstruction technique) 2010 [employer]- All Rights Reserved Reading location - IP/workstation name: [email or web address]
[2018-05-02 13:24] VITALS: BP 130/71
== END 2018-05-02 13:24 | disposition home or self-care (01) ==
LOC: ER 09:49
DX: R10.9 Unspecified abdominal pain (principal); R19.7 Diarrhea, unspecified; R10.32 Left lower quadrant pain; R11.0 Nausea; F17.200 Nicotine dependence, unspecified, uncomplicated
CPT/HCPCS: 99284; 96372; 96361; 96374; 36415; 83690; 85025; 80053; 81001; 87493; 74177; J3490 ×2; J1885; J7030; J0696